=== PATIENT | female | born 1995 | race African-American/Black ===

== ENCOUNTER 2022-04-02 11:32 | Emergency (ER) | payer MEDICAID ==
[~2022-04-02] VITALS: Ht 167.6 cm; Wt 77.0 kg
[2022-04-02 12:00] VITALS: BP 103/47
[2022-04-02] MEDS ORDERED: HYDR453.3 TP (12:27)
[2022-04-02] MEDS ORDERED: CETI10TA6 PO (12:27)
== END 2022-04-02 13:15 | disposition home or self-care (01) ==
LOC: ER 13:12
DX: L25.9 Unspecified contact dermatitis, unspecified cause (principal); L81.0 Postinflammatory hyperpigmentation; R59.0 Localized enlarged lymph nodes; K21.9 Gastro-esophageal reflux disease without esophagitis
CPT/HCPCS: 99282

== ENCOUNTER 2023-02-14 15:25 | Emergency (ER) | payer MEDICAID ==
[~2023-02-14] VITALS: Ht 157.5 cm; Wt 65.0 kg
[~2023-02-14 15:25] MED LIST: CETI10TA6 PO; HYDR453.3 TP
[2023-02-14 15:32] VITALS: BP 145/83; O2SAT 100
[2023-02-14] MEDS ORDERED: IBUPROFEN 600MG TABLET PO ONE (16:30)
[2023-02-14 16:42] LABS: HCG SCREEN NEGATIVE
[2023-02-14 16:45] LABS: BASOPHILS % 0.4 % (0.0-2.0); HEMATOCRIT. 39.5 % (36.0-48.0); HEMOGLOBIN. 13.1 g/dL (12.0-16.0); LYMPHOCYTES % 11.4 % (20.0-50.0); MEAN CORPUSCULAR HEMOGLOBIN 28.5 pg (28.0-32.0); MEAN CORPUSCULAR VOLUME 86.4 fL (81.0-99.0); MEAN PLATELET VOLUME 10.1 fl (7.4-10.4); MONOCYTES % 7.7 % (2.0-8.0); NEUTROPHILS % 80.5 % (40.0-76.0); PLATELET 229 x1000/uL (130-400); RED BLOOD CELL COUNT 4.58 mill/uL (4.2-5.4); RED CELL DISTRIBUTION WIDTH 13.9 % (11.6-14.6); WHITE BLOOD COUNT 10.6 x1000/uL (4.5-11.0)
[2023-02-14 16:49] LABS: ALANINE AMINOTRANSFERASE 9 IU/L (10-49); ALBUMIN 4.4 g/dL (3.2-4.8); ASPARTATE AMINOTRANSFERASE 18 IU/L (<34); BILIRUBIN TOTAL 0.5 mg/dL (0.1-1.0); CALCIUM 9.2 mg/dL (8.7-10.4); CARBON DIOXIDE 24 mEq/L (21-32); CHLORIDE 102 mEq/L (98-107); CREATININE 0.7 mg/dL (0.6-1.0); GLUCOSE 85 mg/dL (70-105); PROTEIN TOTAL 8.7 g/dL (6.0-8.3); SODIUM 133 mEq/L (136-145); TROPONIN I HIGH SENSITIVITY 5 ng/L (3.0-34); UREA NITROGEN BLOOD 5 mg/dL (9-23)
[2023-02-14 21:36] VITALS: PULSE 75; RESP 18; TEMP 98.1
[2023-02-14] MEDS ORDERED: IOHEXOL-350 100 ML BOTTLE ONE (23:09)
== END 2023-02-14 21:42 | disposition home or self-care (01) ==
LOC: ER 15:25
DX: R07.89 Other chest pain (principal); R59.1 Generalized enlarged lymph nodes; K21.9 Gastro-esophageal reflux disease without esophagitis; Z98.890 Other specified postprocedural states
CPT/HCPCS: 99285; 71275; 71045; 80053; 84703; 83880; 85025; 85379; 84484; 36415; 93005; Q9967

== ENCOUNTER 2023-08-09 12:39 | Emergency (ER) | payer MEDICAID, OTHER ==
[~2023-08-09] VITALS: Ht 167.6 cm; Wt 71.0 kg
[2023-08-09 12:47] VITALS: O2SAT 99
[2023-08-09 14:27] LABS: BASOPHILS % 0.4 % (0.0-2.0); DIFFERENTIAL COMMENT 0; HEMATOCRIT. 34.7 % (36.0-48.0); HEMOGLOBIN. 11.7 g/dL (12.0-16.0); LYMPHOCYTES % 11.2 % (20.0-50.0); MEAN CORPUSCULAR HEMOGLOBIN 28.4 pg (28.0-32.0); MEAN CORPUSCULAR HGB CONC 33.7 g/dL (31.0-37.0); MEAN CORPUSCULAR VOLUME 84.3 fL (81.0-99.0); MEAN PLATELET VOLUME 10.1 fl (7.4-10.4); MONOCYTES % 5.4 % (2.0-8.0); PLATELET 126 x1000/uL (130-400); RED BLOOD CELL COUNT 4.12 mill/uL (4.2-5.4); RED CELL DISTRIBUTION WIDTH 13.6 % (11.6-14.6)
[2023-08-09 14:31] LABS: CHLORIDE 103 mEq/L (98-107); POTASSIUM 4.1 mEq/L (3.5-5.1); SODIUM 136 mEq/L (136-145)
[2023-08-09 14:32] LABS: CARBON DIOXIDE 30 mEq/L (21-32)
[2023-08-09 14:33] LABS: CALCIUM 8.7 mg/dL (8.7-10.4)
[2023-08-09 14:37] LABS: CREATININE 0.7 mg/dL (0.6-1.0); GLUCOSE 72 mg/dL (70-105)
[2023-08-09 14:38] LABS: UREA NITROGEN BLOOD 6 mg/dL (9-23)
[2023-08-09 14:39] LABS: ALANINE AMINOTRANSFERASE 9 IU/L (10-49); ALBUMIN 3.8 g/dL (3.2-4.8); ASPARTATE AMINOTRANSFERASE 17 IU/L (<34)
[2023-08-09 14:40] LABS: BILIRUBIN TOTAL 0.3 mg/dL (0.1-1.0); PROTEIN TOTAL 7.9 g/dL (6.0-8.3)
[2023-08-09] MEDS: PREDNISONE 20MG TABLET PO ONE (15:11)
[2023-08-09] MEDS: DIPHENHYDRAMINE 25MG CAPSULE PO ONE (15:11)
[2023-08-09 15:33] LABS: HCG SCREEN NEGATIVE
[2023-08-09] MEDS ORDERED: DIPH25CA83 MT (15:42)
[2023-08-09] MEDS ORDERED: P50 MT (15:42)
[2023-08-09] MEDS ORDERED: HYDR28.485 RC (15:42)
[2023-08-09 15:45] LABS: CLARITY URINE CLOUDY (CLEAR); COLOR URINE YELLOW (YELLOW); GLUCOSE URINE NEGATIVE (NEGATIVE); KETONES URINE TRACE (NEGATIVE); LEUKOCYTE ESTERASE URINE 1+ (NEGATIVE); NITRITE URINE NEGATIVE (NEGATIVE); OCCULT BLOOD URINE NEGATIVE (NEGATIVE); PROTEIN URINE NEGATIVE (NEGATIVE); SPECIFIC GRAVITY URINE 1.016 (1.005-1.030); UROBILINOGEN URINE 0.2 E.U./dL (0.2-1.0)
[2023-08-09 16:05] VITALS: BP 110/69; PULSE 68; RESP 17; TEMP 98.8
[2023-08-09 16:49] LABS: BACTERIA URINE 1+; RBC URINE 0-2 /hpf (0-2); SQUAMOUS EPITHELIAL CELL URINE 2+ /lpf (RARE/1+); TRICHOMONAS URINE 2+
== END 2023-08-09 16:06 | disposition home or self-care (01) ==
LOC: ER 12:39
DX: M32.9 Systemic lupus erythematosus, unspecified (principal); R22.0 Localized swelling, mass and lump, head; Z98.890 Other specified postprocedural states
CPT/HCPCS: 99283; 80053; 81003; 81025; 84703; 85025; 36415; Q0163; J7512